=== PATIENT | male | born 1985 | race Caucasian/White ===

== ENCOUNTER 2019-08-15 15:30 | Emergency (ER) | payer OTHER ==
[~2019-08-15] VITALS: Ht 172.7 cm; Wt 73.9 kg
[2019-08-15] MEDS ORDERED: PREDNISOLONE5 G1 MC (16:44)
[2019-08-15] MEDS ORDERED: MONTELUKAST SODI4 M1 (16:44)
[2019-08-15] MEDS ORDERED: FLONASE16 GM NS (16:44)
[2019-08-15] MEDS ORDERED: HUMALOG100 UNIT/2 SQ (16:44)
[2019-08-15] MEDS ORDERED: PROAIR RESPICL90 MCG (16:45)
== END 2019-08-15 19:28 | disposition home or self-care (01) ==
LOC: ER 15:30
DX: J11.1 Influenza due to unidentified influenza virus with other respiratory manifestations (principal); B96.0 Mycoplasma pneumoniae [M. pneumoniae] as the cause of diseases classified elsewhere